=== PATIENT | male | born 1940 | race Caucasian/White ===

== ENCOUNTER → 2017-04-19 | Outpatient (CLI) | payer MEDICARE, BC ==
[~2017-04-19] MED LIST: ALLO100T PO; ATOR40TA68 PO; BENA5TAB2 PO; DOCU-144 PO; LEVEM SC; LEVO500T10 PO; METF1000 PO; METO-429 PO; NOVO3I SC; PHEN177S43 MT; PRED20TA PO; TEST75GE TD
--- NOTE | 2017-04-20 09:21 | RADRPT ---
PROCEDURE: CT CHEST WITHOUT CONTRAST CLINICAL INDICATION: Shortness of breath TECHNIQUE: Volumetrically acquired images of the thorax obtained without intravenous contrast were reformatted in the axial, coronal, and sagittal planes. CTDI = 16.8 mGy; DLP = 709 mGy-cm. One or more of the following dose reduction technique were used: Automatic exposure control, adjustment of the mA and/or kV according to patient size, and use of iterative reconstruction technique. COMPARISON: 05/13/2016. FINDINGS: LOWER NECK AND CHEST WALL: Normal. AIRWAYS: The trachea and large airways are normal. Moderate bronchial wall thickening is seen. LUNGS: Moderate centrilobular emphysema is seen. Previously demonstrated scattered areas of ground-g lass and nodularity has nearly resolved. Occasional centrilobular micronodules persist. No suspicio us nodules, masses, or consolidation. PLEURA: There is left pleural thickening/fibrosis with calcification.. MEDIASTINUM: No mediastinal mass. LYMPH NODES: No significant axillary, hilar, or mediastinal lymphadenopathy by CT size criteria. CARDIAC: Status post sternotomy with coronary bypass grafting. No pericardial effusion or thickening . VASCULAR: The aorta and main pulmonary artery are normal in caliber. Aortic and coronary atheroscl erotic calcifications are present. OSSEOUS: No suspicious osseous lesions. Scattered degenerative changes of the thoracic spine is vis ualized. Limited evaluation of the upper abdomen demonstrates hepatic steatosis. IMPRESSION: 1. Interval resolution of previously demonstrated scattered nodularity and ground-glass is consisten t with resolved bronchiolitis/bronchopneumonia. Occasional centrilobular post inflammatory micronod ules persist. 2. Aortic and coronary atherosclerosis. 3. Moderate centrilobular emphysema and smoking related airways disease. No suspicious nodules or m asses. If the patient meets screening criteria (patients from the ages of 55-77 with at least a 30 pack year smoking history who are either smokers to have quit within the last 15 years), consider a "Lung Cancer Screening Low Dose Chest CT" scan in 12 months. 4. Persistent left pleural fibrosis with calcification. 5. Atherosclerosis status post CABG. 6. Hepatic steatosis. RPTAT:PP .Carson Martinez MD, Date Time Electronically viewed and signed by .Carson Martinez MD, on 04/20/2017 09:21 .V/
== END | disposition home or self-care (01) ==
LOC: C/S 12:31
PROVIDERS: ATTEND Internal Medicine Pulmonary Disease
DX: J98.11 Atelectasis (principal); J44.9 Chronic obstructive pulmonary disease, unspecified; I70.0 Atherosclerosis of aorta; I25.10 Atherosclerotic heart disease of native coronary artery without angina pectoris; Z87.891 Personal history of nicotine dependence; Z95.1 Presence of aortocoronary bypass graft
CPT/HCPCS: 71250